=== PATIENT | male | born 1945 | race Caucasian/White ===

== ENCOUNTER 2020-07-01 12:42 | Inpatient (IN) | payer MEDICARE, SELFPAY ==
--- NOTE | 2020-07-01 | CT_ITS ---
EXAMINATION: CT CHEST WITH CONTRAST CLINICAL INFORMATION: Question of lung mass on chest radiograph earlier today COMPARISON: Chest radiograph earlier today TECHNIQUE: Multidetector volumetric CT imaging of the chest was obtained after the administration of 65 mL of Omnipaque 350 intravenous contrast without immediate adverse reactions. Axial MIP volume rendering provided. Sagittal and coronal reformatted images were obtained. This CT examination was performed using dose optimization techniques as appropriate, variously including the following: *Automated exposure control *Adjustment of mA and/or kV according to patient size (this includes techniques or standardized protocols for targeted exams where dose is matched to indication/reason for exam; i.e. extremities or head) *Use of iterative reconstruction technique DLP: 200 mGy-cm FINDINGS: LUNGS: There are underlying changes of emphysema present with bullous formation and hyperinflation. No suspicious lung mass is seen. Increased density seen on the recent chest radiograph was probably secondary to sclerosis at the sternoclavicular joint which can be appreciated on the current study. No suspicious lung masses seen. No infiltrates are seen MEDIASTINUM: Heart size normal. No mediastinal or hilar lymphadenopathy is seen. Minimal calcific plaque present in the aorta. Coronary calcifications are present. PLEURA: There is no pleural effusion. No pleural mass or thickening. AXILLA: No lymphadenopathy. UPPER ABDOMEN: There is some mild symmetric thickening of the left adrenal gland.. There is an accessory retroaortic left renal vein present. OSSEOUS STRUCTURES: Mild degenerative changes present in the spine CT/CT chest w con IMPRESSION: 1. The abnormality on the chest radiograph appears to be secondary to sclerosis and degenerative change at the right sternoclavicular joint rather than a lung mass. 2. COPD.
[2020-07-01 12:50] VITALS: BP 169/84; PULSE 77; RESP 16; TEMP 36.6; O2SAT 96; BMI 20.6
[2020-07-01 12:54] LABS: Glucose, Whole Blood 124 mg/dL (60-115)
--- NOTE | 2020-07-01 13:03 | CT_ITS ---
EXAMINATION: CT HEAD WITHOUT CONTRAST CLINICAL INFORMATION: Slurred speech COMPARISON: None TECHNIQUE: Contiguous axial imaging was performed from the skull base to vertex without intravenous administration of contrast. This CT examination was performed using dose optimization techniques as appropriate, variously including the following: *Automated exposure control *Adjustment of mA and/or kV according to patient size (this includes techniques or standardized protocols for targeted exams where dose is matched to indication/reason for exam; i.e. extremities or head) *Use of iterative reconstruction technique DLP: 722 mGy-cm FINDINGS: There is no evidence of an extra-axial collection. There is no evidence of intra or extra-axial hemorrhage. The ventricles and extra-axial CSF spaces are prominent suggestive of generalized atrophy. There is nonspecific periventricular white matter disease. There may be old small left basal ganglia lacunar infarcts. No mass, mass effect or acute infarct is seen. Review of bone windows is unremarkable. No skull fracture is seen. Visualized paranasal sinuses, mastoid air cells and middle ears are clear. CT/CT head/brain wo con IMPRESSION: Generalized atrophy and nonspecific periventricular white matter disease. No acute findings.
--- NOTE | 2020-07-01 13:03 | XR_ITS ---
EXAMINATION: XR CHEST CLINICAL INFORMATION: Weakness COMPARISON: None TECHNIQUE: 2 views of the chest were obtained. FINDINGS: The cardiac silhouette does not appear enlarged. Hilar contours are unremarkable. There is increased density seen at the right medial upper lobe/superior mediastinum in the paratracheal region overlying the right clavicular head. The lungs appear well inflated. The lungs are otherwise clear. There is no pleural effusion or pneumothorax. There are degenerative changes of the spine. XR/XR chest 2V IMPRESSION: Well-inflated lungs questionable for COPD. Increased soft tissue in the right medial upper lung/superior mediastinum overlying the clavicular head questionable for a lesion or pneumonia.
--- NOTE | 2020-07-01 13:03 | ECG_ITS ---
Test Reason : ?STROKE Blood Pressure : / mmHG Vent. Rate : 075 BPM Atrial Rate : 075 BPM P-R Int : 152 ms QRS Dur : 114 ms QT Int : 402 ms P-R-T Axes : 061 -84 006 degrees QTc Int : 448 ms Normal sinus rhythm Left anterior fascicular block Right bundle branch block Abnormal ECG No previous ECGs available Referred By: Dahiana Cross Electronically Signed By:LEATHA CORTEZ MD
[2020-07-01 13:27] LABS: MANUAL DIFF FLAG NO
[2020-07-01 13:29] LABS: Basophils Absolute Auto 0.1 X10*3/uL (0.0-0.2); Basophils Percent Auto 0.7 % (0-2); Eosinophils Absolute Auto 0.2 X10*3/uL (0.0-0.4); Hematocrit 44.2 % (42-52); Hemoglobin 14.7 g/dl (14.0-18.0); Imm Gran Abs Auto 0.04 X10*3/uL (0.00-0.03); Imm Gran Pct Auto 0.4 % (0.0-0.4); Lymphocytes Absolute Auto 1.2 X10*3/uL (1.2-4.9); Lymphocytes Percent Auto 11.4 % (20-40); Mean Corpuscular HGB Conc 33.3 g/dl (31.0-36.0); Mean Corpuscular Hemoglobin 32.4 pg (27.0-33.0); Mean Corpuscular Volume 97.4 fL (80-98); Mean Platelet Volume 9.9 fL (9.4-12.4); Monocytes Absolute Auto 0.7 X10*3/uL (0.1-1.2); Monocytes Percent Auto 6.7 % (2-11); Neutrophils Absolute Auto 8.1 X10*3/uL (2.0-8.3); Neutrophils Percent Auto 78.8 % (45-73); Platelet Count 253 X10*3/uL (160-400); Red Blood Count 4.54 X10*6/uL (4.60-5.80); Red Cell Distribution Width 13.2 % (11.0-16.0); White Blood Count 10.3 X10*3/uL (4.8-10.8)
--- NOTE | 2020-07-01 13:31 | ED_ITS ---
HPI - Neuro Symptoms/Deficit General Chief Complaint: Stroke Stated Complaint: slurred speech Time Seen by Provider: 07/01/20 12:52 Source: patient Mode of arrival: ambulatory Limitations: no limitations History of Present Illness HPI Narrative: 75-year-old male with a past medical history of glaucoma here with slurred speech. The patient reports that last evening he went to bed and when he woke up this morning he noticed his speech was slurred. He tells me he has some difficulty with finding certain words and feels like his speech does sound slurred him. He tells me that his articulation does not feel accurate. No headache, dizziness, vision changes, weakness. Take 81 mg of aspirin prior to arrival Related Data Home Medications Medication Instructions Recorded Confirmed dorzolamide 2 BID 07/01/20 timolol maleate BID 07/01/20 Allergies Allergy/AdvReac Type Severity Reaction Status Date / Time No Known Allergies Allergy Verified 07/01/20 13:03 Review of Systems Review of Systems: Yes all other systems are reviewed and are negative Constitutional: Constitutional: Reports no additional constitutional complai nts, Denies body ache(s), Denies chills, Denies fever(s), Denies headache(s) and Denies weakness Eyes: Eyes: Reports no additional eye complaints and Denies change in vision ENT: Reports system reviewed and no additional complaints, except as documented, Denies dizziness, Denies headache(s), Denies nasal congestion, Denies nasal discharge and Denies neck pain Cardiovascular: Cardiovascular: Reports no additional cardiovascular complaints, Denies chest pain, Denies leg edema and Denies dyspnea Respiratory: Respiratory: Reports no additional respiratory complaints, Denies cough and Denies dyspnea Gastrointestinal: Gastrointestinal: Reports no additional gastrointestinal complaints, Denies abdominal pain, Denies diarrhea, Denies nausea and Denies vomiting Genitourinary: Genitourinary: Denies urinary incontinence Musculoskeletal: Musculoskeletal: Reports no additional musculoskeletal compl aints, Denies back pain, Denies arthralgias, Denies joint swelling, Denies neck pain, Denies numbness and Denies tingling Integumentary/Breasts: Skin/Breast: Reports system reviewed and no additional complaints, except as docu and Denies rash Neurologic: Reports system reviewed and no additional complaints, except as documented, Denies dizziness, Denies headache(s), Denies numbness, Denies tingling and Denies weakness [facility] Past Medical History Attestation statement: The following information was validated with the patient. Source: obtained from family and nursing notes reviewed Medical History Glaucoma Social History Social History Alcohol intake: never Smoking Status: Current every day smoker Smoked in Last 30 Days: Yes Use of substances other than those prescribed or required for medical reasons: No Advance Directives: No Advance Directives Information Provided: No Physical Exam Vital Signs: Vital Signs: Last Vital Signs Temp 98.9 F 07/01/20 15:39 Pulse 79 07/01/20 15:39 Resp 24 H 07/01/20 15:39 BP 123/81 07/01/20 15:39 Pulse Ox 96 07/01/20 15:39 Body Mass Index 20.6 Const: General: cooperative, healthy appearing, comfortable and no acute distress Orientation/consciousness: patient oriented x3 Limitations: no limitations HENMT: Head: Yes normal to inspection Ears: hearing grossly normal bilaterally General nose exam: Normal external nose present Face and sinus: Yes normal facial exam Mouth: Normal oral and palatal mucosa present Throat: Yes posterior oropharynx normal Eyes: General: appearance normal, both eyes and all related structures Pupils: Equal, round and reactive pupils present Neck: Neck: Yes normal visual inspection Chest: Chest palpation & inspection: normal inspection of the chest Resp: Effort & Inspection: normal respiratory effort Auscultation: clear to auscultation bilaterally Cardio: Rate: regular rate Rhythm: regular rhythm Peripheral pulses: Peripheral pulses 2+ throughout GI: Inspection: Yes normal to inspection Palpation (GI): Soft to palpation and nontender Auscultation: normal bowel sounds Back/Spine/Pelvis: Thoracic/Lumbar Spine: thoracic and lumbar spine normal to inspection Skin: General skin exam: no rashes or lesions noted Neuro: General: patient oriented x3, no focal motor deficits and normal sensation to monofilament Cranial nerves: Yes Equal, round and reactive pupils present, Yes Normal facial strength present and Yes Midline tongue present Cognition (Neuro): normal cognition Speech: Other speech findings present (Neuro) (slurred speech ) Gait exam (Neuro): Normal gait present Motor exam (neuro): 5/5 motor strength present throughout Sensory Exam: Normal double simultaneous stimulation for sensation Coordination: [id number] test normal and [id number] test normal Extrem: General: Yes normal to inspection Course Course Course Narrative: 75-year-old male with a past medical history of glaucoma and every day smoker is here with slurred speech. The patient tells me that when he woke up this morning he noticed slurred speech and last evening when he went to bed and his speech was normal. He tells me his speech feels slurred and he also also having difficulty finding words. Arrival the patient does have some dysarthria. His stroke scale is 1. Unfortunately he is not a tPA candidate due to his length of symptoms. Will need labs, EKG, chest x-ray and CT head. Patient took 81mg aspirin prior to arrival. Additional 243mg ordered. He will need admission for further evaluation. Attending physician Dr. cMcracken made aware of patient in the ED. 1420- CT shows generalized atrophy and nonspecific periventricular white matter disease. Chest x-ray shows questionable COPD with increased soft tissue in the right medial/upper lobe and superior mediastinum question for pneumonia or lesion. The patient has no cough or fever or shortness of breath. No leukocytosis or any other signs or symptoms concerning for pneumonia. Labs unremarkable. Will need admission for additional imaging and neurology consult. Discussed with Gena PEARSON from hospital medicine team who accepted patient MDM - Neuro Symptoms/Deficit MDM Narrative Medical decision making narrative: ICH vs CVA, hypoglycemia Medical Records Attestation: I reviewed the patient's medical records. Lab Data Attestation: I reviewed the patient's lab results. Result diagrams: 07/01/20 13:10 07/01/20 13:10 Labs: Lab Results 07/01/20 07/01/20 07/01/20 Range/Units 12:50 13:10 13:10 WBC 10.3 (4.8-10.8) X10*3/uL RBC 4.54 L (4.60-5.80) X10*6/uL Hgb 14.7 (14.0-18.0) g/dl Hct 44.2 (42-52) % MCV 97.4 (80-98) fL MCH 32.4 (27.0-33.0) pg MCHC 33.3 (31.0-36.0) g/dl RDW 13.2 (11.0-16.0) % Plt Count 253 (160-400) X10*3/uL MPV 9.9 (9.4-12.4) fL Immature Gran % (Auto) 0.4 (0.0-0.4) % Neut % (Auto) 78.8 H (45-73) % Lymph % (Auto) 11.4 L (20-40) % [place] % (Auto) 6.7 (2-11) % Eos % (Auto) 2.0 (0-4) % Baso % (Auto) 0.7 (0-2) % Lymph # (Auto) 1.2 (1.2-4.9) X10*3/uL [place] # (Auto) 0.7 (0.1-1.2) X10*3/uL Eos # (Auto) 0.2 (0.0-0.4) X10*3/uL Baso # (Auto) 0.1 (0.0-0.2) X10*3/uL Abs Immat Gran (auto) 0.04 H (0.00-0.03) X10*3/uL Absolute Neuts (auto) 8.1 (2.0-8.3) X10*3/uL Absolute Nucleated RBC 0.000 (0.0-0.012) X10*3/uL Nucleated RBC % (auto) 0.0 (0.0-0.2) /100WBC PT 11.0 (10.8-13.0) SEC INR 0.9 (0.9-1.1) APTT 34.1 (24.1-38.0) SEC Sodium (135-145) mmol/L Potassium (3.3-5.1) mmol/l Chloride (96-108) mmol/L Carbon Dioxide (22-29) mmol/L Anion Gap (12-20) BUN (9-16) mg/dL Creatinine (0.5-1.4) mg/dL Estim Creat Clear Calc Estimated GFR POC Glucose 124 H (60-115) mg/dL Random Glucose (60-115) mg/dL Calcium (8.4-10.2) mg/dL Phosphorus (2.7-4.5) mg/dL Magnesium (1.6-2.6) mg/dL Total Creatine Kinase (38-174) U/L Troponin I High Sens (<3.5-35.0) ng/L Urine Color Urine Appearance Urine pH (5.0-8.0) Ur Specific [place] (1.005-1.025) Urine Protein (NEG-TRACE) MG/DL Urine Glucose (UA) (NEG) MG/DL Urine Ketones (NEG) MG/DL Urine Blood (NEG) Urine Nitrite (NEG) Ur Leukocyte Esterase (NEG) Urine RBC (0) /HPF Urine WBC (0-4) /HPF Ur Squamous Epith Cells /LPF Urine Bacteria /LPF Ethyl Alcohol COVID-19 (BEBA) (Negative) COVID-19 Clin Com 07/01/20 07/01/20 07/01/20 Range/Units 13:10 13:10 13:10 WBC (4.8-10.8) X10*3/uL RBC (4.60-5.80) X10*6/uL Hgb (14.0-18.0) g/dl Hct (42-52) % MCV (80-98) fL MCH (27.0-33.0) pg MCHC (31.0-36.0) g/dl RDW (11.0-16.0) % Plt Count (160-400) X10*3/uL MPV (9.4-12.4) fL Immature Gran % (Auto) (0.0-0.4) % Neut % (Auto) (45-73) % Lymph % (Auto) (20-40) % [place] % (Auto) (2-11) % Eos % (Auto) (0-4) % Baso % (Auto) (0-2) % Lymph # (Auto) (1.2-4.9) X10*3/uL [place] # (Auto) (0.1-1.2) X10*3/uL Eos # (Auto) (0.0-0.4) X10*3/uL Baso # (Auto) (0.0-0.2) X10*3/uL Abs Immat Gran (auto) (0.00-0.03) X10*3/uL Absolute Neuts (auto) (2.0-8.3) X10*3/uL Absolute Nucleated RBC (0.0-0.012) X10*3/uL Nucleated RBC % (auto) (0.0-0.2) /100WBC PT (10.8-13.0) SEC INR (0.9-1.1) APTT (24.1-38.0) SEC Sodium 138 (135-145) mmol/L Potassium 4.5 (3.3-5.1) mmol/l Chloride 102 (96-108) mmol/L Carbon Dioxide 30 H (22-29) mmol/L Anion Gap 11 L (12-20) BUN 16 (9-16) mg/dL Creatinine 0.81 (0.5-1.4) mg/dL Estim Creat Clear Calc 63.6 Estimated GFR > 60 POC Glucose (60-115) mg/dL Random Glucose 102 (60-115) mg/dL Calcium 8.7 (8.4-10.2) mg/dL Phosphorus 2.7 (2.7-4.5) mg/dL Magnesium 2.2 (1.6-2.6) mg/dL Total Creatine Kinase 105 (38-174) U/L Troponin I High Sens < 3.5 (<3.5-35.0) ng/L Urine Color Urine Appearance Urine pH (5.0-8.0) Ur Specific [place] (1.005-1.025) Urine Protein (NEG-TRACE) MG/DL Urine Glucose (UA) (NEG) MG/DL Urine Ketones (NEG) MG/DL Urine Blood (NEG) Urine Nitrite (NEG) Ur Leukocyte Esterase (NEG) Urine RBC (0) /HPF Urine WBC (0-4) /HPF Ur Squamous Epith Cells /LPF Urine Bacteria /LPF Ethyl Alcohol Cancelled COVID-19 (BEBA) (Negative) COVID-19 Clin Com 07/01/20 07/01/20 07/01/20 Range/Units 14:10 14:11 15:21 WBC (4.8-10.8) X10*3/uL RBC (4.60-5.80) X10*6/uL Hgb (14.0-18.0) g/dl Hct (42-52) % MCV (80-98) fL MCH (27.0-33.0) pg MCHC (31.0-36.0) g/dl RDW (11.0-16.0) % Plt Count (160-400) X10*3/uL MPV (9.4-12.4) fL Immature Gran % (Auto) (0.0-0.4) % Neut % (Auto) (45-73) % Lymph % (Auto) (20-40) % [place] % (Auto) (2-11) % Eos % (Auto) (0-4) % Baso % (Auto) (0-2) % Lymph # (Auto) (1.2-4.9) X10*3/uL [place] # (Auto) (0.1-1.2) X10*3/uL Eos # (Auto) (0.0-0.4) X10*3/uL Baso # (Auto) (0.0-0.2) X10*3/uL Abs Immat Gran (auto) (0.00-0.03) X10*3/uL Absolute Neuts (auto) (2.0-8.3) X10*3/uL Absolute Nucleated RBC (0.0-0.012) X10*3/uL Nucleated RBC % (auto) (0.0-0.2) /100WBC PT (10.8-13.0) SEC INR (0.9-1.1) APTT (24.1-38.0) SEC Sodium (135-145) mmol/L Potassium (3.3-5.1) mmol/l Chloride (96-108) mmol/L Carbon Dioxide (22-29) mmol/L Anion Gap (12-20) BUN (9-16) mg/dL Creatinine (0.5-1.4) mg/dL Estim Creat Clear Calc Estimated GFR POC Glucose (60-115) mg/dL Random Glucose (60-115) mg/dL Calcium (8.4-10.2) mg/dL Phosphorus (2.7-4.5) mg/dL Magnesium (1.6-2.6) mg/dL Total Creatine Kinase (38-174) U/L Troponin I High Sens (<3.5-35.0) ng/L Urine Color STRAW Urine Appearance CLEAR Urine pH 7.0 (5.0-8.0) Ur Specific [place] 1.010 (1.005-1.025) Urine Protein NEG (NEG-TRACE) MG/DL Urine Glucose (UA) NEG (NEG) MG/DL Urine Ketones NEG (NEG) MG/DL Urine Blood 1+ H (NEG) Urine Nitrite NEG (NEG) Ur Leukocyte Esterase NEG (NEG) Urine RBC 0-2 (0) /HPF Urine WBC 0 (0-4) /HPF Ur Squamous Epith Cells TRACE /LPF Urine Bacteria NONE /LPF Ethyl Alcohol < 10 COVID-19 (BEBA) Negative (Negative) COVID-19 Clin Com See Note Imaging Data Chest x-ray: Attestation: I personally reviewed and interpreted this imaging study as follows: Radiologist's impression: EXAMINATION: XR CHEST CLINICAL INFORMATION: Weakness COMPARISON: None TECHNIQUE: 2 views of the chest were obtained. FINDINGS: The cardiac silhouette does not appear enlarged. Hilar contours are unremarkable. There is increased density seen at the right medial upper lobe/superior mediastinum in the paratracheal region overlying the right clavicular head. The lungs appear well inflated. The lungs are otherwise clear. There is no pleural effusion or pneumothorax. There are degenerative changes of the spine. XR/XR chest 2V IMPRESSION: Well-inflated lungs questionable for COPD. Increased soft tissue in the right medial upper lung/superior mediastinum overlying the clavicular head questionable for a lesion or pneumonia. CT scan - head: Attestation: I personally reviewed and interpreted this imaging study as follows: Radiologist's impression: EXAMINATION: CT HEAD WITHOUT CONTRAST CLINICAL INFORMATION: Slurred speech COMPARISON: None TECHNIQUE: Contiguous axial imaging was performed from the skull base to vertex without intravenous administration of contrast. This CT examination was performed using dose optimization techniques as appropriate, variously including the following: *Automated exposure control *Adjustment of mA and/or kV according to patient size (this includes techniques or standardized protocols for targeted exams where dose is matched to indication/reason for exam; i.e. extremities or head) *Use of iterative reconstruction technique DLP: 722 mGy-cm FINDINGS: There is no evidence of an extra-axial collection. There is no evidence of intra or extra-axial hemorrhage. The ventricles and extra-axial CSF spaces are prominent suggestive of generalized atrophy. There is nonspecific periventricular white matter disease. There may be old small left basal ganglia lacunar infarcts. No mass, mass effect or acute infarct is seen. Review of bone windows is unremarkable. No skull fracture is seen. Visualized paranasal sinuses, mastoid air cells and middle ears are clear. CT/CT head/brain wo con IMPRESSION: Generalized atrophy and nonspecific periventricular white matter disease. No acute findings. ECG Data Attestation: I personally reviewed and interpreted this ECG as follows: ECG interpretation date: 07/01/20 ECG interpretation time: 13:01 Interpretation: NSR, RBBB, normal pr, normal st segment NIH Stroke Scale Internal: Initial- Upon Arrival Level of Consciousness: Alert Level of Consciousness Questions: Answers both questions correctly Level of Consciousness Commands: Performs both tasks correctly Best Gaze: Normal Visual: No visual loss Facial Palsy: Normal Motor Arm (Right): No drift Motor Arm (Left): No drift Motor Leg (Right): No drift Motor Leg (Left): No drift Limb Ataxia: Absent Sensory: Normal Best Language: No aphasia Dysarthia: Mild to moderate dysarthria Extinction and Inattention: No abnormality Score: 1 Discharge Plan Discharge Clinical Impression: Dysarthria Patient Disposition: Admitted As Inpatient
[2020-07-01 13:37] LABS: INTERNATIONAL NORM RATIO 0.9 (0.9-1.1)
[2020-07-01 13:40] LABS: Partial Thromboplastin Time 34.1 SEC (24.1-38.0)
[2020-07-01 13:51] LABS: Anion Gap 11 (12-20); Blood Urea Nitrogen 16 mg/dL (9-16); Calcium 8.7 mg/dL (8.4-10.2); Carbon Dioxide 30 mmol/L (22-29); Chloride 102 mmol/L (96-108); Creatinine Clr Calc Pharmacy 63.6; Estimated Glomerular Filt Rate > 60; Glucose Random 102 mg/dL (60-115); Magnesium 2.2 mg/dL (1.6-2.6); Phosphorus 2.7 mg/dL (2.7-4.5); Potassium 4.5 mmol/l (3.3-5.1); Sodium 138 mmol/L (135-145)
[2020-07-01 13:57] LABS: Troponin-I High Sensitivity < 3.5 ng/L (<3.5-35.0)
[2020-07-01 14:26] VITALS: BP 126/85; PULSE 86; RESP 17; O2SAT 99
[2020-07-01 14:33] LABS: COVID-19 Test Negative (Negative)
[2020-07-01 14:34] LABS: Ethanol < 10 mg/dL
[2020-07-01] MEDS: Aspirin 81 MG TAB.CHEW 243 MG PO (14:35)
[2020-07-01 14:55] LABS: Stroke Lab Use COMPLETE
[2020-07-01 15:29] LABS: Glucose Urine UA NEG (NEG); Leukocyte Esterase Urine NEG (NEG); Nitrite Urine NEG (NEG); Urine Blood 1+ (NEG); Urine Ketones NEG (NEG); Urine Protein NEG (NEG-TRACE)
[2020-07-01 15:32] LABS: Appearance Urine CLEAR; Color Urine STRAW
[2020-07-01] MEDS: iohexoL 350 MG/ML 100 ML INFUS..BTL IV (15:32)
[2020-07-01 15:38] LABS: RBC Urine 0-2 /HPF (0); Squamous Epithelial Cell Urine TRACE /LPF; WBC Urine 0 /HPF (0-4)
[2020-07-01 15:39] VITALS: BP 123/81; PULSE 79; RESP 24; TEMP 37.2; O2SAT 96
--- NOTE | 2020-07-01 16:30 | P.HPHOSP_ITS ---
History of Present Illness Date of Service: 07/01/20 <Gena Philip NP - Last Filed: 07/01/20 17:01> Chief Complaint: Slurred speech <Gena Philip NP - Last Filed: 07/01/20 17:01> 75 year old man presenting with slurred speech. He reported that he was in his usual state of health yesterday and he woke up this morning and he had slurred speech and word finding difficulty. He had no weakness in any extremity or facial droop. He denied chest pain, shortness of breath, dizziness, visual changes. He has no medical problems other than glaucoma but he is a smoker. His labs and vital signs all within acceptable limits. He is getting up walking around the room and speech seems to have cleared up, although he does have a heavy [place] accent some may be difficult to tell whether there are any speech issues. Brain CT showed no acute abnormality. Chest CT showed no consolidation or effusion. He was given full dose of aspirin in the ER. He will be admitted for further and management treatment of possible stroke. <Gena Philip NP - Last Filed: 07/01/20 17:01> Review of Systems Review of Systems: Denies any recent fever chills or decrease in appetite respiratory denies any shortness of breath coverage production cardiovascular is adjustment of any PND or edema gastrointestinal denies any dysphagia abdominal pain nausea vomiting or diarrhea genitourinary denies any dysuria frequency or hematuria musculoskeletal denies any joint pain or swelling neuropsych See HPI all other systems reviewed are negative <Gena Philip NP - Last Filed: 07/01/20 17:01> Constitutional: Constitutional: Denies headache(s) and Denies weakness <Gena Philip NP - Last Filed: 07/01/20 17:01> ENT: Denies dizziness and Denies headache(s) <Gena Philip NP - Last Filed: 07/01/20 17:01> Musculoskeletal: Musculoskeletal: Denies numbness and Denies tingling <Gena Philip NP - Last Filed: 07/01/20 17:01> Neurologic: Reports system reviewed and no additional complaints, except as documented, Denies dizziness, Denies headache(s), Denies numbness, Denies tingling and Denies weakness <LEMUEL Villalta Last Filed: 07/01/20 17:01> [facility]LY [facility] Medical History: Medical History Glaucoma <Gena Philip NP - Last Filed: 07/01/20 17:01> Pertinent family history: Denies cardiac disease or stroke <Gena Philip NP - Last Filed: 07/01/20 17:01> Social History: Social History (Updated 07/01/20 @ 16:56 by Gena Philip NP) Alcohol intake: never Smoking Status: Current every day smoker Cigarettes Per Day: 10 Smoked in Last 30 Days: Yes Use of substances other than those prescribed or required for medical reasons: No Currently Displaying Signs/Symptoms of Drug Intoxication Withdrawal: No Advance Directives: No Advance Directives Information Provided: No Do you have thoughts of harming others: None Do you have a plan to hurt others: No Plan service: No Current occupational status: retired <Gena Pihlip NP - Last Filed: 07/01/20 17:01> Meds Allergies/Adverse reactions: Allergies Allergy/AdvReac Type Severity Reaction Status Date / Time No Known Allergies Allergy Verified 07/01/20 13:03 <Gena Philip NP - Last Filed: 07/01/20 17:01> Home medications: Home Medications Medication Instructions Recorded Confirmed Type dorzolamide BID 07/01/20 History timolol maleate BID 07/01/20 History <Gena Philip NP - Last Filed: 07/01/20 17:01> Physical Exam Vital Signs and Narrative: Vital Signs: Last Vital Signs Temp 98.9 F 07/01/20 15:39 Pulse 79 07/01/20 15:39 Resp 24 H 07/01/20 15:39 BP 123/81 07/01/20 15:39 Pulse Ox 96 07/01/20 15:39 Body Mass Index 20.6 <Gena Philip NP - Last Filed: 07/01/20 17:01> Appearing in no acute distress head is normocephalic atraumatic eyes pupils are PERRLA sclera is anicteric mouth throat mucous membranes are intact and moist neck is supple no lymphadenopathy, no JVD noted lung sounds are clear to auscultation heart regular rate rhythm, clear S1, S2 positive bowel sounds, abdomen is soft, nontender neuro patient is alert x3, no focal deficits <Gena Philip NP - Last Filed: 07/01/20 17:01> Results Labs CBC and Chem 7: : 07/02/20 06:11 07/02/20 06:11 <Gena Philip NP - Last Filed: 07/01/20 17:01> Labs: Laboratory Results - last 24 hr 07/01/20 07/01/20 07/01/20 12:50 13:10 13:10 MCV 97.4 MCH 32.4 MCHC 33.3 RDW 13.2 Plt Count 253 MPV 9.9 Immature Gran % (Auto) 0.4 Neut % (Auto) 78.8 H Lymph % (Auto) 11.4 L [place] % (Auto) 6.7 Eos % (Auto) 2.0 Baso % (Auto) 0.7 Lymph # (Auto) 1.2 [place] # (Auto) 0.7 Eos # (Auto) 0.2 Baso # (Auto) 0.1 Abs Immat Gran (auto) 0.04 H Absolute Neuts (auto) 8.1 Absolute Nucleated RBC 0.000 Nucleated RBC % (auto) 0.0 PT 11.0 INR 0.9 APTT 34.1 Anion Gap Estim Creat Clear Calc Estimated GFR POC Glucose 124 H Random Glucose Calcium Phosphorus Magnesium Total Creatine Kinase Troponin I High Sens Urine Color Urine Appearance Urine pH Ur Specific [place] Urine Protein Urine Glucose (UA) Urine Ketones Urine Blood Urine Nitrite Ur Leukocyte Esterase Urine RBC Urine WBC Ur Squamous Epith Cells Urine Bacteria Ethyl Alcohol COVID-19 (BEBA) COVID-19 Clin Com 07/01/20 07/01/20 07/01/20 13:10 13:10 13:10 MCV MCH MCHC RDW Plt Count MPV Immature Gran % (Auto) Neut % (Auto) Lymph % (Auto) [place] % (Auto) Eos % (Auto) Baso % (Auto) Lymph # (Auto) [place] # (Auto) Eos # (Auto) Baso # (Auto) Abs Immat Gran (auto) Absolute Neuts (auto) Absolute Nucleated RBC Nucleated RBC % (auto) PT INR APTT Anion Gap 11 L Estim Creat Clear Calc 63.6 Estimated GFR > 60 POC Glucose Random Glucose 102 Calcium 8.7 Phosphorus 2.7 Magnesium 2.2 Total Creatine Kinase 105 Troponin I High Sens < 3.5 Urine Color Urine Appearance Urine pH Ur Specific [place] Urine Protein Urine Glucose (UA) Urine Ketones Urine Blood Urine Nitrite Ur Leukocyte Esterase Urine RBC Urine WBC Ur Squamous Epith Cells Urine Bacteria Ethyl Alcohol Cancelled COVID-19 (BEBA) COVID-19 Clin Com 07/01/20 07/01/20 07/01/20 14:10 14:11 15:21 MCV MCH MCHC RDW Plt Count MPV Immature Gran % (Auto) Neut % (Auto) Lymph % (Auto) [place] % (Auto) Eos % (Auto) Baso % (Auto) Lymph # (Auto) [place] # (Auto) Eos # (Auto) Baso # (Auto) Abs Immat Gran (auto) Absolute Neuts (auto) Absolute Nucleated RBC Nucleated RBC % (auto) PT INR APTT Anion Gap Estim Creat Clear Calc Estimated GFR POC Glucose Random Glucose Calcium Phosphorus Magnesium Total Creatine Kinase Troponin I High Sens Urine Color STRAW Urine Appearance CLEAR Urine pH 7.0 Ur Specific [place] 1.010 Urine Protein NEG Urine Glucose (UA) NEG Urine Ketones NEG Urine Blood 1+ H Urine Nitrite NEG Ur Leukocyte Esterase NEG Urine RBC 0-2 Urine WBC 0 Ur Squamous Epith Cells TRACE Urine Bacteria NONE Ethyl Alcohol < 10 COVID-19 (BEBA) Negative COVID-19 Clin Com See Note <Gena Philip NP - Last Filed: 07/01/20 17:01> Imaging Radiologist's Impressions: Impressions Chest CT 07/01/20 00:00 IMPRESSION: 1. The abnormality on the chest radiograph appears to be secondary to sclerosis and degenerative change at the right sternoclavicular joint rather than a lung mass. 2. COPD. Chest X-Ray 07/01/20 13:03 IMPRESSION: Well-inflated lungs questionable for COPD. Increased soft tissue in the right medial upper lung/superior mediastinum overlying the clavicular head questionable for a lesion or pneumonia. Head CT 07/01/20 13:03 IMPRESSION: Generalized atrophy and nonspecific periventricular white matter disease. No acute findings. <Gena Philip NP - Last Filed: 07/01/20 17:01> Assessment and Plan (1) Stroke: 75 year old man admitted with possible stroke. Stroke. Brain CT showed no acute abnormality. Given dose of aspirin. Will monitor on telemetry. Neuro to follow, MRI, echo, Carotid doppler, PT/OT. Aspirin and statin. COPD. No exacerbation, not on home medications. Smoker. NRT. Discussed smoking cessation. DVT prophylaxis with Heparin Discussed with Dr. Rasmussen Full code <Gena Philip NP - Last Filed: 07/01/20 17:01>
[2020-07-01 18:45] VITALS: BP 122/80; PULSE 86; RESP 21; TEMP 36.7; O2SAT 97
--- NOTE | 2020-07-01 18:56 | PM.EVENT ---
Event Note Date of Service: 07/01/20 Event Note: Addendum to H and P by Mid-level Provider I saw and examined the patient and participated in the ellis portion of the E/M service. I agree with the history and exam as documented by [facility]. Patient presents with stroke symptoms of dysarthria, CT shows no acute changes. Exam: No focal neuro deficit. Will admit for stroke work up and neuro checks Neuro consult, ASA. Otherwise, I agree with assessment and plan as outlined in the H and P.
[2020-07-01 19:27] VITALS: BP 140/79; PULSE 100; RESP 20; TEMP 36.3; O2SAT 96
[2020-07-01] MEDS: Atorvastatin Calcium 40 MG TABLET PO (21:55)
[2020-07-01] MEDS: Heparin Sodium,Porcine 5,000 UNIT/ML VIAL 5000 UNIT SUBCUT (21:55)
[2020-07-01 22:00] VITALS: BP 130/72; PULSE 79; RESP 20; TEMP 36.8; O2SAT 96
[2020-07-02] VITALS (12 sets, daily range): BP systolic 100–170; BP diastolic 58–85; PULSE 72–101; RESP 16–18; TEMP 36.4–37; O2SAT 93–98
--- NOTE | 2020-07-02 | MR_ITS ---
MRI OF THE BRAIN WITHOUT IV CONTRAST INDICATION: Stroke. COMPARISON: Head CT 07/01/2020. TECHNIQUE: Multiplanar multisequence MR imaging of the brain was obtained without IV contrast. FINDINGS: There is a 1.3 cm acute infarct within the posterior left watts radiata. No additional acute infarcts. No significant mass effect and no hemorrhagic transformation. There is global cerebral volume loss and there is advanced chronic microangiopathy. Etat crible appearance of the basal ganglia bilaterally as the sequela of chronic hypertension. There is no hydrocephalus, extra-axial surface collection, or herniation. The major flow voids at the skull base are preserved. There is no intracranial hemorrhage on the gradient recalled echo acquisition. The midline structures are normal. The cerebellar tonsils are normally positioned. The craniocervical junction is normal. Osseous marrow signal intensity is homogenous. The visualized soft tissues are unremarkable. MR/MR head/brain wo con IMPRESSION: - There is a 1.3 cm acute infarct within the posterior left watts radiata. No significant mass effect and no hemorrhagic transformation. - There is global cerebral volume loss and there is advanced chronic microangiopathy. Etat crible appearance of the basal ganglia bilaterally as the sequela of chronic hypertension.
--- NOTE | 2020-07-02 | US_ITS ---
EXAMINATION: US EXTRACRANIAL CAROTID DUPLEX, BILATERAL CLINICAL INFORMATION: Stroke COMPARISON: None TECHNIQUE: Real-time ultrasound and Doppler techniques (integrating B-mode 2-D vascular images, Doppler spectral analysis and color-flow Doppler imaging) were utilized to interrogate the extracranial carotid arteries, the vertebral arteries and proximal subclavian arteries bilaterally. The degree of stenosis is determined by criteria similar to NASCET. FINDINGS: Right Side: 1. There is mild soft hypoechoic or noncalcified atherosclerotic plaque seen in the bifurcation/proximal ICA region. 2. The common carotid artery PSV proximally is 86 cm/s and distally 93 cm/s. 3. The proximal internal carotid artery velocities are 76 cm/s systolic and 20 cm/s diastolic. 4. The proximal external carotid artery PSV is 111 cm/s. 5. The vertebral artery shows antegrade flow. 6. The subclavian artery waveforms are normal. Left Side: 1. There is moderate soft hypoechoic or noncalcified atherosclerotic plaque seen in the bifurcation/proximal ICA region. 2. The common carotid artery PSV proximally is 110 cm/s and distally 99 cm/s. 3. The proximal internal carotid artery velocities are 78 cm/s systolic and 26 cm/s diastolic. 4. The proximal external carotid artery PSV is 105 cm/s. 5. The vertebral artery shows antegrade flow. 6. The subclavian artery waveforms are normal. US/US carotid duplex BI IMPRESSION: 1. RIGHT: Mild hypoechoic noncalcified plaque. 0-49% right ICA stenosis. 2. LEFT: Moderate hypoechoic noncalcified plaque. 0-49% left ICA stenosis.
[2020-07-02 06:36] LABS: MANUAL DIFF FLAG NO
[2020-07-02 06:43] LABS: Basophils Absolute Auto 0.1 X10*3/uL (0.0-0.2); Basophils Percent Auto 0.9 % (0-2); Eosinophils Absolute Auto 0.3 X10*3/uL (0.0-0.4); Eosinophils Percent Auto 3.2 % (0-4); Hematocrit 42.6 % (42-52); Hemoglobin 14.4 g/dl (14.0-18.0); Imm Gran Abs Auto 0.05 X10*3/uL (0.00-0.03); Imm Gran Pct Auto 0.5 % (0.0-0.4); Lymphocytes Absolute Auto 1.4 X10*3/uL (1.2-4.9); Lymphocytes Percent Auto 14.3 % (20-40); Mean Corpuscular HGB Conc 33.8 g/dl (31.0-36.0); Mean Corpuscular Hemoglobin 32.5 pg (27.0-33.0); Mean Corpuscular Volume 96.2 fL (80-98); Monocytes Absolute Auto 0.7 X10*3/uL (0.1-1.2); Monocytes Percent Auto 7.4 % (2-11); Neutrophils Absolute Auto 7.4 X10*3/uL (2.0-8.3); Neutrophils Percent Auto 73.7 % (45-73); Platelet Count 260 X10*3/uL (160-400); Red Blood Count 4.43 X10*6/uL (4.60-5.80); White Blood Count 10.1 X10*3/uL (4.8-10.8)
[2020-07-02 07:03] LABS: Anion Gap 13 (12-20); Blood Urea Nitrogen 15 mg/dL (9-16); Carbon Dioxide 29 mmol/L (22-29); Chloride 104 mmol/L (96-108); Creatinine Clr Calc Pharmacy 63.6; Estimated Glomerular Filt Rate > 60; Glucose Random 85 mg/dL (60-115); Potassium 4.2 mmol/l (3.3-5.1); Sodium 142 mmol/L (135-145)
[2020-07-02] MEDS: Nicotine 14 MG PATCH.TD24 TRANSDERMA (07:18)
[2020-07-02] MEDS: Aspirin 81 MG TAB.CHEW PO (07:18)
[2020-07-02] MEDS: Heparin Sodium,Porcine 5,000 UNIT/ML VIAL 5000 UNIT SUBCUT ×2 (07:18→22:22)
[2020-07-02 10:47] LABS: Cholesterol 276 mg/dL; HDL Cholesterol 51 mg/dL; LDL Cholesterol Calculated 205 mg/dl; Triglycerides 104 mg/dL
--- NOTE | 2020-07-02 12:17 | P.PNIM_ITS ---
Subjective Subjective Date of Service: 07/02/20 Interval History: Seen in f/u acute stroke. He is doing well and shows no no new neuroligical deficits ROS: no fever Neuro: no speech changes, and no weaknes or visual changes Physical Exam Vital Signs: Vital Signs: Last Vital Signs Temp 98.5 F 07/02/20 11:33 Pulse 98 07/02/20 11:33 Resp 18 07/02/20 11:33 BP 100/58 L 07/02/20 11:33 Pulse Ox 98 07/02/20 11:33 Body Mass Index 20.6 General: AO X 3, no acute distress Resp: CTA bilateral CVS: S1,S2,RRR GI: +BS, NT, no distention Skin: No rash Neuro: motor grossly intact, speech is normal Psych: appropriate affect Objective Data Current Medications Generic Name Dose Route Start Last Admin Trade Name Freq PRN Reason Stop Dose Admin Acetaminophen 650 mg 07/01/20 19:49 Acetaminophen 325 Mg Tablet PO Q6H PRN Pain, Mild (Pain Scale 1-3) Aspirin 81 mg 07/02/20 09:00 07/02/20 07:18 Aspirin 81 Mg Tab.Chew PO 81 mg DAILY JOSE Administration Atorvastatin Calcium 40 mg 07/01/20 21:00 07/01/20 21:55 Atorvastatin Calcium 40 Mg Tablet PO 40 mg BEDTIME JOSE Administration Heparin Sodium (Porcine) 5,000 unit 07/01/20 20:00 07/02/20 07:18 Heparin Sodium,Porcine 5,000 Unit/Ml Vial SUBCUT 5,000 unit Q12H JOSE Administration Nicotine 14 mg 07/02/20 09:00 07/02/20 07:18 Nicotine 14 Mg Patch.Td24 TRANSDERMA 14 mg DAILY JOSE Administration Ondansetron HCl 4 mg 07/01/20 19:49 Ondansetron Hcl 4 Mg/2 Ml Vial IVPUSH Q8H PRN Nausea and Vomiting Pharmacy Consult 1 each 07/01/20 14:20 Consult Rx Perform Med Rec MISCELLANE ONCE PRN Consult order Labs CBC & Chem 7: 07/02/20 06:11 07/02/20 06:11 Assessment and Plan (1) HLD (hyperlipidemia): Status: Acute (2) Acute ischemic stroke: Status: Acute Assessment and Plan: 75/m previously healthy who presented with slur speech and found to have 1.3 cm acute infarct within the posterior left watts radiata on MRI, corrotid US no significant stenosis 1. Acute ischemic stroke--symptoms have improved. BP is within normal. No AFIB on monitor. Continue management with ASA, Lipitor. Speech, PT, OT eval per protocol tomorro w. Echo tomorrow. Neuro eval pending 2. HLD--Chol 276, LDL of 205, TG of 104, HDL 51--Started on Lipitor Stroke. Brain CT showed no acute abnormality. Given dose of aspirin. Will monitor on telemetry. Neuro to follow, MRI, echo, Carotid doppler, PT/OT. Aspirin and statin. COPD. No exacerbation, not on home medications. Smoker. NRT. Cessation discussed
--- NOTE | 2020-07-02 16:13 | MHC.CM.PN ---
Pt reports he lives at home with his and is independent with care and mobility at baseline. Pt has no services and no DME. Pt reports he completed a HCP at his PCPs office but he cannot remember the name of the PCP. pts DC plan is TBD pending PT/OT evals. transport will depend on dispo.
--- NOTE | 2020-07-02 18:36 | P.CNNE_ITS ---
History of Present Illness Data of Consult Service Date: 07/02/20 Primary Care Provider: Unknown Physician HPI Reason for consult: stroke with dysarthria This is a 75-year-old right-handed previously healthy man who woke up with slurred speech and difficulty finding words. When his symptoms did not get better as the day went on he called his friend who asked him to come to the emergency room. He did not notice any facial droop, headache dizziness or visual disturbance. He had no weakness or balance problems. There is no previous history of stroke or TIA or heart disease. He has no history of diabetes hypertension or hyperlipidemia. He smokes half a pack of cigarettes a day. Since admission his speech has improved but is not quite back to normal. The stools slurs some words and has slight difficulty finding words at times. He has no dysphagia. CT scan on admission showed no acute findings. MRI showed 1.5 centimetre acute infarct in the left watts radiata as well as extensive chronic diffuse microvascular white matter disease Review of Systems Constitutional: Constitutional: Denies headache(s) and Denies weakness Eyes: Eyes: Reports no additional eye complaints ENT: Reports Normal hearing present, Denies dizziness and Denies headache(s) Cardiovascular: Cardiovascular: Reports no additional cardiovascular complaints Respiratory: Respiratory: Reports no additional respiratory complaints Gastrointestinal: Gastrointestinal: Reports no additional gastrointestinal complaints Genitourinary: Genitourinary: Reports no additional male genitourinary complaints Musculoskeletal: Musculoskeletal: Denies numbness and Denies tingling Integumentary/Breasts: Skin/Breast: Reports system reviewed and no additional complaints, except as docu Neurologic: Reports system reviewed and no additional complaints, except as d ocumented, Reports Normal hearing present, Denies dizziness, Denies headache(s), Denies numbness, Denies tingling and Denies weakness Psychiatric: Psychiatric: Reports as per HPI Endocrine: Endocrine: Reports no additional endocrine complaints Hematologic/Lymphatic: Hematologic/Lymphatic: Reports no additional hematologi c/lymphatic complaints Allergic/Immunologic: Allergic/Immunologic: Reports no additional allergic/immunologic complaints FORMERLY [facility] Past Medical History Medical History Glaucoma Social History Social History (Updated 07/01/20 @ 16:56 by Gena Philip NP) Alcohol intake: never Smoking Status: Current every day smoker Cigarettes Per Day: 10 Smoked in Last 30 Days: Yes Use of substances other than those prescribed or required for medical reasons: No Currently Displaying Signs/Symptoms of Drug Intoxication Withdrawal: No Advance Directives: No Advance Directives Information Provided: No Do you have thoughts of harming others: None Do you have a plan to hurt others: No Plan service: No Current occupational status: retired Meds Allergies Allergy/AdvReac Type Severity Reaction Status Date / Time No Known Allergies Allergy Verified 07/01/20 13:03 Home Medications Medication Instructions Recorded Confirmed Type dorzolamide BID 07/01/20 History timolol maleate BID 07/01/20 History Physical Exam Vital Signs: Vital Signs: Last Vital Signs Temp 97.7 F 07/02/20 15:48 Pulse 91 07/02/20 15:48 Resp 18 07/02/20 15:48 BP 105/68 07/02/20 15:48 Pulse Ox 96 07/02/20 15:48 Body Mass Index 20.6 Const: General: cooperative, comfortable, no acute distress, well developed, alert and awake Nutritional Appearance: well nourished Orientation/consciousness: oriented to person, oriented to place and oriented to time Limitations: no limitations HENMT: Head: Yes normal to inspection, Yes normocephalic and Yes atraumatic Ears: hearing grossly normal bilaterally General nose exam: Normal external nose present Face and sinus: Yes normal facial exam Mouth: Normal oral and palatal mucosa present Eyes: General: appearance normal, both eyes and all related structures Visual Dwyer: normal visual dwyer by confrontation Alignment and Position: alignment normal Periorbital: periorbital findings normal Eyelids: Yes eyelids normal Conjunctivae: conjunctivae normal Sclerae: sclerae normal Corneas: corneas normal Pupils: Equal, round and reactive pupils present and Pupil accommodation reflex normal EOM: EOMs intact bilaterally Direct Ophthalmoscopy: normal light reflex Neck: Neck: Yes normal visual inspection, Yes full ROM and Yes no meningeal signs Thyroid: Thyroid normal Carotids: normal carotid upstroke and bounding pulses Chest: Chest palpation & inspection: normal inspection of the chest Resp: Effort & Inspection: normal respiratory effort Auscultation: clear to auscultation bilaterally Cardio: Rate: regular rate Rhythm: regular rhythm Heart sounds: S1 normal heart sound present and S2 normal heart sound present Peripheral pulses: Peripheral pulses 2+ throughout GI: Inspection: Yes normal to inspection Percussion: Yes normal to percussion Auscultation: normal bowel sounds Rectal Exam - Male: Yes deferred Back/Spine/Pelvis: Cervical Spine: normal cervical lordosis and cervical ROM normal Thoracic/Lumbar Spine: thoracic and lumbar spine normal to inspection Skin: General skin exam: no rashes or lesions noted Neuro: Other: Slight facial asymmetry with slight droop of the right angle of the mouth without any apparent weakness. Minimal intermittent lingual dysarthria. No dysphasia General: oriented to person, oriented to place, oriented to time, gait normal, tone normal, moves all extremities, Normal light touch and pain sensation, no meningeal signs, no focal motor deficits, CN's II- XI intact bilaterally, normal sensation to monofilament and deep tendon reflexes 2+ bilaterally Cranial nerves: Yes CN's II-XII intact bilaterally, Yes Equal, round and reactive pupils present, Yes Bilaterally intact EOM present, Yes Nystagmus not present, Yes Normal facial strength present, Yes Midline tongue present, Yes Normal gag reflex present, Yes Symmetric palate elevation present, Yes Normal hearing present and Yes Ability to bilaterally rotate head present Cognition (Neuro): normal cognition Speech: Other speech findings present (Neuro) Gait exam (Neuro): Normal gait present Motor exam (neuro): 5/5 motor strength present throughout, Pronator motor function not present, no tremor noted, no asterixis, Motor fasciculations not present, Normal motor muscle tone present throughout and Motor abnormalities not present Sensory Exam: Bilaterally intact graphesthesia Deep tendon reflexes (DTR's): Right triceps reflex intensity grade: 2+, Left triceps reflex intensity grade: 2+, Rt Biceps (C5, C6): 2+, Left biceps reflex intensity grade: 2+, Right brachioradialis reflex intensity grade: 2+, Left brachioradialis reflex intensity grade: 2+, Right patellar reflex intensity grade: 2+, Left patellar reflex intensity grade: 2+, Right ankle reflex intensity grade: 2+ and Left ankle reflex intensity grade: 2+ Plantar Reflex Responses: downgoing: right, left and bilateral Coordination: [id number] test normal, [id number] test normal, tandem gait normal and Romberg test negative Pupils: Normal pupillary reactivity/response: bilateral Extrem: General: Yes normal to inspection, Yes normal exam except as noted and Yes no pedal edema Psych: Appearance: grossly normal Mental Status: mental status grossly normal Speech and movement: Normal speech and movement present and Clear speech present Affect: normal affect Attitude: cooperative Thought process: Normal thought process present Results Labs CBC & Chem 7: 07/02/20 06:11 07/02/20 06:11 Labs: Short CBC 07/02/20 Range/Units 06:11 WBC 10.1 (4.8-10.8) X10*3/uL Hgb 14.4 (14.0-18.0) g/dl Hct 42.6 (42-52) % Plt Count 260 (160-400) X10*3/uL BMP 07/02/20 06:11 Sodium 142 Potassium 4.2 Chloride 104 Carbon Dioxide 29 BUN 15 Creatinine 0.81 Calcium 9.0 Assessment and Plan (1) Acute ischemic stroke: Problem details: Stroke with minimum dysarthria but no other findings. No significant carotid disease on carotid Doppler. MRI confirms small left watts radiata acute infarct Status: Acute Speech therapy evaluation. Start aspirin 81 mg a day. Patient presented outside the tPA window and had no significant neurological deficits so tPA was not used. (2) Dysarthria: Status: Acute Procedures Abscess I/D Date of Service: 07/02/20
[2020-07-02] MEDS: Atorvastatin Calcium 40 MG TABLET PO (22:20)
[2020-07-02] MEDS: timoloL maleate 0.5 % Oph Sol 5 ML DRBTL 1 DROP EYE-BOTH (22:24)
[2020-07-02] MEDS: Dorzolamide HCl 2 % Ophth Sol 10 ML DRPBTL 1 DROP EYE-BOTH (22:24)
[2020-07-03 02:00] VITALS: BP 99/66; PULSE 88; RESP 20; TEMP 37; O2SAT 94
[2020-07-03 04:00] VITALS: BP 109/71; PULSE 97; RESP 18; TEMP 36.8; O2SAT 95
[2020-07-03 06:00] VITALS: PULSE 65
[2020-07-03 08:00] VITALS: BP 120/70; PULSE 82; RESP 18; TEMP 36.6; O2SAT 96
[2020-07-03] MEDS: Nicotine 14 MG PATCH.TD24 TRANSDERMA (08:37)
[2020-07-03] MEDS: Aspirin 81 MG TAB.CHEW PO (08:37)
[2020-07-03] MEDS: timoloL maleate 0.5 % Oph Sol 5 ML DRBTL 1 DROP EYE-BOTH (08:37)
[2020-07-03] MEDS: Heparin Sodium,Porcine 5,000 UNIT/ML VIAL 5000 UNIT SUBCUT (08:37)
[2020-07-03] MEDS: Dorzolamide HCl 2 % Ophth Sol 10 ML DRPBTL 1 DROP EYE-BOTH (08:38)
--- NOTE | 2020-07-03 11:29 | P.DS_ITS ---
DS: Providers Provider Date of admission: 07/01/20 16:19 Primary care physician: Unknown Physician Consults: 07/01/20 19:49 Consult to Neurology Routine Consulting Provider: [facility] Reason for consultation: STROKE Has provider been notified: No DS: Diagnosis Discharge Diagnosis (1) Acute ischemic stroke: Status: Acute Problem details: Stroke with minimum dysarthria but no other findings. No significant carotid disease on carotid Doppler. MRI confirms small left watts radiata acute infarct (2) Dysarthria: Status: Acute DS: Medications Discharge Medications Home Medications: Home Medications Medication Instructions Recorded Confirmed dorzolamide BID 07/01/20 timolol maleate BID 07/01/20 DS: Summary Hospital Course Hospital Course: He presented with dysrathria that was out of window for tPA. He has no other neuro symptoms. CT was ok but showed no acute stroke but MRI showed watts radiat acute infarct. PT, OT and speech has seen him. He is on ASA and Lipitor for HLD--Chol 276, LDL of 205, TG of 104, HDL 51--Started on Lipitor. BP is normal. Time Spent with Patient Time attestation: Total time spent providing and/or coordinating discharge services: Quality: Stroke Pt Provided Written Stroke Discharge Instructions: Patient given written information Physical Exam Vital Signs: Vital Signs: Last Vital Signs Temp 97.9 F 07/03/20 08:00 Pulse 82 07/03/20 08:00 Resp 18 07/03/20 08:00 BP 120/70 07/03/20 08:00 Pulse Ox 96 07/03/20 08:00 Body Mass Index 20.6 Constitutional Awake and Alert, No apparent distress Neck Supple, No lymphadenopathy Cardiovascular RRR, No M/R/G, S1 S2, No S3 S4, No pedal edema Respiratory Lungs clear, No respiratory distress Gastrointestinal Non tender, Non-distended Skin No rash Neurological Alert & oriented x3 Psychological Appropriate affect DS: Data Data Completed and Pending Labs on day of discharge: 07/01/20 CT chest w con Stat 07/01/20 12:50 Glucose, Whole Blood Routine 07/01/20 13:03 ECG 12 lead EKG Stat EKG Documentation DIRECTED CT head/brain wo con Stat XR chest 2V Stat 07/01/20 13:10 Basic Metabolic Panel Stat Complete Blood Count Auto Diff Stat Creatine Kinase Total Stat Magnesium Stat Partial Thromboplastin Time Stat Phosphorus Stat Prothrombin Time INR Stat Stroke Lab Use Stat Troponin-I High Sensitivity Stat 07/01/20 14:10 Ethanol Stat 07/01/20 14:11 COVID-19 ID NOW (Valenzuela) Stat 07/01/20 14:18 Aspirin 243 mg PO ONCE ONE 07/01/20 15:32 iohexoL 350 MG/ML [Omnipaque 350 MG/ML] 100 ml IV ONCE ONE 07/01/20 16:11 Transfer Order Routine 07/02/20 MR head/brain wo con Routine US carotid duplex BI Routine 07/02/20 06:11 Basic Metabolic Panel DAILY@0600 Complete Blood Count Auto Diff DAILY@0600 Lipid Panel Routine 07/02/20 10:34 Add Laboratory Test Routine Laboratory Last Values WBC 10.1 X10*3/uL (4.8-10.8) 07/02/20 06:11 RBC 4.43 X10*6/uL (4.60-5.80) L 07/02/20 06:11 Hgb 14.4 g/dl (14.0-18.0) 07/02/20 06:11 Hct 42.6 % (42-52) 07/02/20 06:11 MCV 96.2 fL (80-98) 07/02/20 06:11 MCH 32.5 pg (27.0-33.0) 07/02/20 06:11 MCHC 33.8 g/dl (31.0-36.0) 07/02/20 06:11 RDW 13.0 % (11.0-16.0) 07/02/20 06:11 Plt Count 260 X10*3/uL (160-400) 07/02/20 06:11 MPV 10.0 fL (9.4-12.4) 07/02/20 06:11 Immature Gran % (Auto) 0.5 % (0.0-0.4) H 07/02/20 06:11 Neut % (Auto) 73.7 % (45-73) H 07/02/20 06:11 Lymph % (Auto) 14.3 % (20-40) L 07/02/20 06:11 [place] % (Auto) 7.4 % (2-11) 07/02/20 06:11 Eos % (Auto) 3.2 % (0-4) 07/02/20 06:11 Baso % (Auto) 0.9 % (0-2) 07/02/20 06:11 Lymph # (Auto) 1.4 X10*3/uL (1.2-4.9) 07/02/20 06:11 [place] # (Auto) 0.7 X10*3/uL (0.1-1.2) 07/02/20 06:11 Eos # (Auto) 0.3 X10*3/uL (0.0-0.4) 07/02/20 06:11 Baso # (Auto) 0.1 X10*3/uL (0.0-0.2) 07/02/20 06:11 Abs Immat Gran (auto) 0.05 X10*3/uL (0.00-0.03) H 07/02/20 06:11 Absolute Neuts (auto) 7.4 X10*3/uL (2.0-8.3) 07/02/20 06:11 Absolute Nucleated RBC 0.000 X10*3/uL (0.0-0.012) 07/02/20 06:11 Nucleated RBC % (auto) 0.0 /100WBC (0.0-0.2) 07/02/20 06:11 PT 11.0 SEC (10.8-13.0) 07/01/20 13:10 INR 0.9 (0.9-1.1) 07/01/20 13:10 APTT 34.1 SEC (24.1-38.0) 07/01/20 13:10 Sodium 142 mmol/L (135-145) 07/02/20 06:11 Potassium 4.2 mmol/l (3.3-5.1) 07/02/20 06:11 Chloride 104 mmol/L (96-108) 07/02/20 06:11 Carbon Dioxide 29 mmol/L (22-29) 07/02/20 06:11 Anion Gap 13 (12-20) 07/02/20 06:11 BUN 15 mg/dL (9-16) 07/02/20 06:11 Creatinine 0.81 mg/dL (0.5-1.4) 07/02/20 06:11 Estim Creat Clear Calc 63.6 07/02/20 06:11 Estimated GFR > 60 07/02/20 06:11 POC Glucose 124 mg/dL (60-115) H 07/01/20 12:50 Random Glucose 85 mg/dL (60-115) 07/02/20 06:11 Calcium 9.0 mg/dL (8.4-10.2) 07/02/20 06:11 Phosphorus 2.7 mg/dL (2.7-4.5) 07/01/20 13:10 Magnesium 2.2 mg/dL (1.6-2.6) 07/01/20 13:10 Total Creatine Kinase 105 U/L (38-174) 07/01/20 13:10 Troponin I High Sens < 3.5 ng/L (<3.5-35.0) 07/01/20 13:10 Triglycerides 104 mg/dL 07/02/20 06:11 Cholesterol 276 mg/dL 07/02/20 06:11 LDL Cholesterol, Calc 205 mg/dl 07/02/20 06:11 HDL Cholesterol 51 mg/dL 07/02/20 06:11 Urine Color STRAW 07/01/20 15:21 Urine Appearance CLEAR 07/01/20 15:21 Urine pH 7.0 (5.0-8.0) 07/01/20 15:21 Ur Specific [place] 1.010 (1.005-1.025) 07/01/20 15:21 Urine Protein NEG MG/DL (NEG-TRACE) 07/01/20 15:21 Urine Glucose (UA) NEG MG/DL (NEG) 07/01/20 15:21 Urine Ketones NEG MG/DL (NEG) 07/01/20 15:21 Urine Blood 1+ (NEG) H 07/01/20 15:21 Urine Nitrite NEG (NEG) 07/01/20 15:21 Ur Leukocyte Esterase NEG (NEG) 07/01/20 15:21 Urine RBC 0-2 /HPF (0) 07/01/20 15:21 Urine WBC 0 /HPF (0-4) 07/01/20 15:21 Ur Squamous Epith Cells TRACE /LPF 07/01/20 15:21 Urine Bacteria NONE /LPF 07/01/20 15:21 Ethyl Alcohol < 10 mg/dL 07/01/20 14:10 COVID-19 (BEBA) Negative (Negative) 07/01/20 14:11 COVID-19 Clin Com See Note 07/01/20 14:11 Discharge Plan Discharge Patient Disposition: Home, Self-Care Referrals: Physician,Unknown [Primary Care Provider] - Discharge Medications: New atorvastatin 40 mg Tablet 40 mg PO BEDTIME Qty: 30 RF: 0 aspirin 81 mg Tablet,Chewable 81 mg PO DAILY Qty: 30 RF: 0 Continued timolol maleate 0.5 % BID RF: 0 dorzolamide BID RF: 0 Discharge Orders: Discharge Order (Routine); Ordered 07/03/20 Ordered By: Mp Rasmussen Diet: low fat, low cholesterol Activity on Discharge: As tolerated Discharge Date/Time: 07/03/20 14:30 Visit Report Forms: Patient Portal Discharge page Care Plan Goals: To return baseline speech function Health Concerns: no new concern at this time Plan of Treatment: Take aspirin and cholesterol medication as directed and follow up with your doctor in a week, if you have any symptoms of stroke call 911
[2020-07-03 12:00] VITALS: BP 148/83; PULSE 68; RESP 18; TEMP 36.3; O2SAT 97
--- NOTE | 2020-07-03 12:06 | MHC.CM.PN ---
Addendum entered by Evi Hayward 07/03/20 12:08: Patient's is Katina Barrios [phone]. Original Note: Patient will be discharged home today no services after ST eval is complete. Patient's will provide transport. Nursing and patient aware.
--- NOTE | 2020-07-03 19:49 | CA_ITS ---
Transthoracic Echocardiogram Patient (Last, First, Middle): Vishal Barrios, Gender: Male Date of : 1945 Age: 75 Procedure Date: 07/03/2020 Procedure Type: Transthoracic Echocardiogram Location: [facility] [place] Height: 167.64 cm Weight: 57.61 kg BSA: 1.65 m2 Heart Rate: bpm BP: 128 / 73 mmHg Review Trainer: Referring MD: Gena Philip NP Symptoms: STROKE Study Quality: Fair ECG Rhythm: Sinus Conclusions: - The left ventricular systolic function is mildly decreased. The visually estimated ejection fraction is between 40-45%. - Normal right ventricular cavity size and systolic function. - The left atrium is normal in size. Interatrial shunt cannot be excluded by color Doppler. Findings Left Ventricle Normal left ventricular cavity size. There is mildly increased left ventricular wall thickness. The left ventricular systolic function is mildly decreased. The visually estimated ejection fraction is between 40-45%. Regional wall motion abnormalities can not be excluded due to suboptimal endocardial definition. Diastolic function is normal for age. Right Ventricle Normal right ventricular cavity size and systolic function. Atria The left atrium is normal in size. Interatrial shunt cannot be excluded by color Doppler. Aortic Valve The aortic valve was not well visualized. There is no aortic valve stenosis. There is no aortic valve regurgitation. Mitral Valve Normal mitral valve structure and function. There is no mitral valve regurgitation. There is no mitral valve stenosis. Pulmonic Valve The pulmonic valve was not well visualized. Tricuspid Valve Normal tricuspid valve structure. There is trace tricuspid valve regurgitation. Normal right atrial pressure. There is no evidence of pulmonary hypertension. Great Vessels The aorta was not well visualized. The pulmonary artery was not well visualized. Venous The inferior vena cava is normal in size and collapses greater than 50% with inspiration. Pericardium/Pleural There is no evidence of pericardial effusion. Prior Study Comparison No prior study available for comparison. Measurements 2D Linear Measurements IVSd: 1.11 0.6-0.9/0.6-1.0 cm LVIDd: 3.54 3.9-5.3/4.2-5.9 cm LVIDd Index: 2.15 2.4-3.2/2.2-3.1 cm/m2 LVIDs: 2.54 2.0-3.6 cm LVPWd: 1.17 0.7-1.1 cm Ao Root: 2.30 2.1-3.5 cm LA Diam: 3.00 2.7-3.8/3.0-4.0 cm LAIDs Index: 1.82 1.5-2.3 cm/m2 LV Mass: 158.89 67-162/88-224 g LV Mass Index: 96.29 43-95/49-115 g/m2 LVOT Diam: 2.00 3.0+(-)1.3 cm 2D Systolic Function EF 4C: 51.10 >55% Mitral Valve MV Pk E: 0.56 MV PK A: 0.82 MV Decel Time: 155.00 E/A: 0.70 E'Lateral: 6.58 E'Medial: 6.96 E/E' Med: 8.00 E/E' Lat: 8.50 PHT: 45.00 MVA PHT: 4.89 Decel Cook: 3.60 Aortic Valve AoV Pk Leon: 1.08 AoV Mn Leon: 0.62 AoV VTI: 0.26 AoV Pk Grad: 5.00 Aov Mn Grad: 2.00 KATHIE Cont.VTI: 1.79 LVOT LVOT Pk Leon: 0.64 LVOT Mn Leon: 0.36 LVOT VTI: 0.15 LVOT Pk Grad: 2.00 LVOT Mn Grad: 1.00 LVOT Diam: 2.00 LVOT Area: 3.14 Diastolic Function MV Pk E: 0.56 MV Pk A: 0.82 E/A: 0.70 E'Medial: 6.96 E/E' Med: 8.00 E' Laterial: 6.58 E/E' Lat: 8.50 Tricuspid Valve TR Pk Leon: 2.03 TR Pk Grad: 16.00 RA Press: 3.00 RVSP: 19.00 Great Vessels Aorta Ao Root-2D: 2.30 2.0-3.7 cm Pulmonary Valve PV Pk Leon: 0.72 Peak PV Grad: 2.00 Updated in Other Vendor System with Status of Final Addison Lisa MD electronically signed on 07/03/2020 2:58:55 PM with status of Final
== END 2020-07-03 14:30 | disposition home or self-care (01) | DRG 66 ==
LOC: HO.ED 14:25 → HO.IMC 17:15
PROVIDERS: Nurse Practitioner Acute Care; Nurse Practitioner Family; Admitting Provider Family Medicine; Emergency Provider Emergency Medicine; Visit Provider Internal Medicine
DX: I63.89 Other cerebral infarction (principal); E78.5 Hyperlipidemia, unspecified; F17.210 Nicotine dependence, cigarettes, uncomplicated; Z71.6 Tobacco abuse counseling; R29.701 NIHSS score 1; R47.1 Dysarthria and anarthria; Z20.828 Contact with and (suspected) exposure to other viral communicable diseases; Z79.82 Long term (current) use of aspirin; Z79.899 Other long term (current) drug therapy
CPT/HCPCS: 36415; 70450; 70551; 71046; 71260; 80048; 80061; 80320; 81001; 82550; 82947; 83735; 84100; 84484; 85025; 85610; 85730; 87635; 92523; 93005; 93306; 93880; 97161; 97165; 99223; 99285; Q9967

== ENCOUNTER 2021-12-08 14:30 | Emergency (ER) | payer MEDICARE, SELFPAY ==
--- NOTE | ~2021-12-08 | US_ITS ---
EXAMINATION: US VENOUS ULTRASOUND WITH DOPPLER LOWER EXTREMITY, LEFT CLINICAL INFORMATION: Pain COMPARISON: None TECHNIQUE: Ultrasound of the deep veins is performed from the hip to the calf with compression sonography and color and pulse Doppler assessment. Spectral analysis with color-flow imaging is performed. FINDINGS: There is normal venous compression and respiratory variation and augmented flow. The visualized common femoral vein, superficial femoral vein, profunda femoral vein, popliteal vein, and the trifurcation region shows no evidence of deep venous thrombosis. There is no significant popliteal fossa cyst. There is asymmetric edema and thickening involving the left Achilles tendon. If the patient's symptoms persist, followup ultrasound in 5 days 7 days might be of value to exclude proximal propagation from a non-visualized calf vein. US/US venous duplex LE LT IMPRESSION: No DVT demonstrated in the left lower extremity. Asymmetric edema and thickening involving the left Achilles tendon. Recommend clinical correlation with any symptoms of tendinitis, and MR could be considered for further evaluation if clinically warranted.
[2021-12-08 14:46] VITALS: BP 144/94; PULSE 110; RESP 18; TEMP 36.6; O2SAT 96; BMI 17.2
--- NOTE | 2021-12-08 16:49 | ED.LOWEXIN ---
HPI - Extremity Injury (Lower) General Chief Complaint: Extremity Injury, Lower Stated Complaint: L leg swelling Time Seen by Provider: 12/08/21 15:41 Source: patient Mode of arrival: ambulatory Limitations: no limitations History of Present Illness HPI Narrative: 76 y/o male presenting with left lower leg pain and swelling for the last 2 weeks. He denies any known injury. He reports the pain is located in the back of his lower left leg and travels to the front of his left ankle. He denies any calf pain or upper leg pain. No chest pain or SOB. He reports the area behind his left ankle is swollen and it hurts to put on shoes. He is otherwise healthy and has no medical problems. MD complaint: leg injury Onset (ago): week(s) (2) Type of Injury: unknown Severity: moderate Severity scale (1-10): 5 Relieving factors: nothing Exacerbating factors: weight bearing, movement and palpation Associated symptoms: ambulatory Other symptoms: none Related Data Home Medications Medication Instructions Recorded Confirmed dorzolamide BID 07/01/20 timolol maleate BID 07/01/20 Previous Rx's Medication Instructions Recorded aspirin 81 mg chewable tablet 81 mg PO DAILY #30 tab 07/03/20 atorvastatin 40 mg tablet 40 mg PO BEDTIME #30 tab 07/03/20 naproxen 500 mg tablet 500 mg PO BID PRN #20 tab 12/08/21 Allergies Allergy/AdvReac Type Severity Reaction Status Date / Time No Known Allergies Allergy Verified 12/08/21 14:49 Review of Systems Review of Systems: Constitutional: No Fever, No Chills Cardiovascular: No Chest Pain, No SOB Gastrointestinal: No Nausea, No Vomiting, No abdominal Pain Musculoskeletal: + joint pain, + Myalgias Skin: No Skin Lesions, No rash Neuro: No Weakness, No Numbness Psych: No Anxiety/Panic, No Depression Heme/Lymph: No Bruising, No Lymphadenopathy PMFSH Past Medical History Medical History Glaucoma Social History Social History (Updated 07/01/20 @ 16:56 by Gena Philip NP) Alcohol intake: never Cigarettes Per Day: 10 Advance Directives: No Advance Directives Information Provided: No service: No Current occupational status: retired Physical Exam Vital Signs: Vital Signs: Last Vital Signs Temp 98 F 12/08/21 14:46 Pulse 110 H 12/08/21 14:46 Resp 18 12/08/21 14:46 BP 144/94 H 12/08/21 14:46 Pulse Ox 96 12/08/21 14:46 BMI result Body Mass Index 17.2 Appearance: Alert. Oriented X3. No acute distress. HEENT: normal inspection CVS: Normal heart rate and rhythm. Pulses normal. Respiratory: No respiratory distress. Skin: Skin warm and dry. Normal skin color. Normal skin turgor. No rashes. Extremities: left lower extremity with mild anterior and posterior ankle swelling with tenderness of the Achilles tendon, no erythema or warmth. Negative Lieberman test. No calf tenderness or edema Neuro: Oriented X 3. No motor deficit. No sensory deficit. Ambulatory Course Course Course Narrative: 76 y/o male presenting with left lower leg pain, atraumatic and ambulatory. No evidence of DVT on examination. LE doppler is negative for DVT - showing thickening of the Achilles tendon consistent with tendonitis. Wrapped in SARA for compression and support. Will give short course of nSAID given age. Will refer to PCP for PT referral. Stable for d/c home. Discharge Plan Discharge Clinical Impression: Achilles tendinitis Patient Disposition: Home, Self-Care Instructions: Achilles Tendinitis (ED) Additional Instructions: Your ultrasound was negative for DVT but showed some thickening of your Achilles tendon Recommend wearing a compression SARA wrap and an orthopedic shoe insert to take pressure off of the tendon Follow up with your doctor - you may benefit from physical therapy and they can make a referral for you if needed Prescriptions: New naproxen 500 mg tablet 500 mg PO BID PRN (Reason: pain) Qty: 20 0RF No Action timolol maleate 0.5 % BID 0RF Rx Instructions: BOTH EYES dorzolamide BID 0RF Rx Instructions: 1 DROP BOTH EYES BID atorvastatin 40 mg Tablet 40 mg PO BEDTIME Qty: 30 0RF aspirin 81 mg Tablet,Chewable 81 mg PO DAILY Qty: 30 0RF Rx Instructions: ok with baby aspirin OTC
== END 2021-12-08 17:21 | disposition home or self-care (01) ==
PROVIDERS: Emergency Provider Emergency Medicine Emergency Medical Services; PCP Internal Medicine
DX: M76.62 Achilles tendinitis, left leg (principal); M79.662 Pain in left lower leg
CPT/HCPCS: 93971; 99283; 99284